=== PATIENT | male | born 1935 | race Caucasian/White ===

== ENCOUNTER 2017-10-26 10:45 | Emergency (ER) | payer OTHER ==
[~2017-10-26] VITALS: Ht 170.2 cm; Wt 56.7 kg
[~2017-10-26 10:45] MED LIST: ADULT LOW DOSE81 MG PO; ARTIFICIAL TEAR15 M1 OPHTHALMIC; ARTIFICIAL TEAR15 M3; ATENOLOL 25 MG25 M1 PG; ATENOLOL 25 MG25 M1 PO; ATENOLOL 25MG T25 MG PO; AZITHROMYCIN 2250 MG PO; COL-RITE100 MG PO; CRESTOR40 MG PO; DUONEB 2.5-0.5 M3 ML INH; EUCERIN CREME57 GM TOP; FISHOIL PO; FLUOCINONI0.05 %/30; FLUOCINONI0.05 %/30 TOP; HEART PILL; HIGH CHOLESTEROL; LEVAQUIN 500 M500 M7 PO; MEDROL DOSPAK21 TA1 PO; MIRALAX255 GM PO; MULTIVITAMINS; MULTIVITAMINS PO; NITRO-DUR 10 C0.2 MG TRANSDERM; NITRO-DUR1 EAC1 TOP; NITROSTAT0.4 MG SUBLING; PREDNISONE 10 M10 M1 PO; PREDNISONE 20 M20 M1 PO; SIMVASTATIN40 MG PO; SODIUM FLUORIDE; TESSALON PERLE100 MG PO; UNICOMPLEX M TA1 TA1 PO; ZITHROMAX TRI-500 MG PO
[2017-10-26] MEDS ORDERED: HYDROCODONE-AP1 EAC6 PO (12:28)
[2017-10-26 13:15] VITALS: BP 130/60
== END 2017-10-26 13:16 | disposition home or self-care (01) ==
LOC: M.ERS 10:45
DX: J32.9 Chronic sinusitis, unspecified (principal); M54.2 Cervicalgia; M25.551 Pain in right hip; I25.10 Atherosclerotic heart disease of native coronary artery without angina pectoris; E78.00 Pure hypercholesterolemia, unspecified; F17.210 Nicotine dependence, cigarettes, uncomplicated; Z86.73 Personal history of transient ischemic attack (TIA), and cerebral infarction without residual deficits; Z88.0 Allergy status to penicillin

== ENCOUNTER → 2018-04-16 | Outpatient (CLI) | payer OTHER ==
[~2018-04-16] MED LIST changes: +HYDROCODONE-AP1 EAC6 PO
== END ==
LOC: M.RAD 08:52
DX: R13.10 Dysphagia, unspecified (principal); M43.22 Fusion of spine, cervical region

== ENCOUNTER 2018-11-30 13:20 | Emergency (ER) | payer OTHER ==
[~2018-11-30] VITALS: Ht 172.7 cm; Wt 50.4 kg
[2018-11-30] MEDS ORDERED: ANORO ELLIPTA1 EACH INH (13:38)
[2018-11-30] MEDS ORDERED: NORCO 5-325 TA1 EAC1 PO (14:27)
[2018-11-30 14:47] VITALS: BP 133/68
== END 2018-11-30 14:47 | disposition home or self-care (01) ==
LOC: M.ERS 13:20
DX: M79.18 Myalgia, other site (principal); E78.00 Pure hypercholesterolemia, unspecified; I25.10 Atherosclerotic heart disease of native coronary artery without angina pectoris; Z98.62 Peripheral vascular angioplasty status; F17.210 Nicotine dependence, cigarettes, uncomplicated; Z88.0 Allergy status to penicillin

== ENCOUNTER → 2018-12-08 | Outpatient (CLI) | payer OTHER ==
[~2018-12-08] MED LIST changes: +ANORO ELLIPTA1 EACH INH; +NORCO 5-325 TA1 EAC1 PO
== END ==
LOC: M.RAD 10:53
DX: J43.9 Emphysema, unspecified (principal); J84.10 Pulmonary fibrosis, unspecified

== ENCOUNTER 2019-09-08 18:24 | Emergency (ER) | payer OTHER ==
[~2019-09-08] VITALS: Ht 172.7 cm; Wt 51.3 kg
[2019-09-08] MEDS ORDERED: ZANAFLEX4 MG PO (19:46)
[2019-09-08 19:56] VITALS: BP 148/60
== END 2019-09-08 19:56 | disposition home or self-care (01) ==
LOC: M.ERS 18:24
DX: S16.1XXA Strain of muscle, fascia and tendon at neck level, initial encounter (principal); S09.8XXA Other specified injuries of head, initial encounter; G93.9 Disorder of brain, unspecified; E78.00 Pure hypercholesterolemia, unspecified; I25.10 Atherosclerotic heart disease of native coronary artery without angina pectoris; F17.210 Nicotine dependence, cigarettes, uncomplicated; Z86.73 Personal history of transient ischemic attack (TIA), and cerebral infarction without residual deficits; Z98.890 Other specified postprocedural states; Z88.0 Allergy status to penicillin; Y04.8XXA Assault by other bodily force, initial encounter; Y92.89 Other specified places as the place of occurrence of the external cause; Y93.89 Activity, other specified; Y99.8 Other external cause status

== ENCOUNTER 2019-10-19 14:42 | Emergency (ER) | payer OTHER ==
[~2019-10-19] VITALS: Ht 172.7 cm; Wt 47.6 kg
[~2019-10-19 14:42] MED LIST changes: +ZANAFLEX4 MG PO
[2019-10-19 15:35] LABS: INFLUENZA A ANTIGEN Negative (Negative); INFLUENZA B ANTIGEN Negative (Negative)
[2019-10-19 15:57] LABS: HEMATOCRIT 37.2 % (42.0-52.0); HEMOGLOBIN 12.6 gm/dL (14.0-18.0); MCH 32.9 pg (26.0-34.0); MCHC 33.9 g/dL (28.0-37.0); MCV 96.9 fL (80.0-100.0); MPV 7.4 fl. (7.2-11.1); RBC 3.84 mil/uL (4.50-6.00); RDW-CV 13.8 % (10.5-14.5); WBC 7.5 thou/uL (4.0-11.0)
[2019-10-19 16:15] LABS: CALCIUM 8.9 mg/dL (8.5-10.1); POTASSIUM 4.1 mmol/L (3.5-5.1)
[2019-10-19 16:27] LABS: ALBUMIN 2.8 g/dL (3.4-5.0); TOTAL BILIRUBIN 0.3 mg/dL (<0.1-1.0); TOTAL PROTEIN 6.7 g/dL (6.4-8.2)
[2019-10-19] MEDS ORDERED: ALBUTEROL2.5 MG/31 INH (17:46)
[2019-10-19] MEDS ORDERED: VENTOLIN HFA 1818 GM INH (17:46)
[2019-10-19] MEDS ORDERED: ZPAK PO (17:46)
[2019-10-19] MEDS ORDERED: PREDNISONE50 MG PO (17:46)
[2019-10-19 17:58] VITALS: BP 150/68
--- NOTE | 2019-10-20 11:01 | EKG ---
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: : 1935 Requested By: Lan Vasquez Order Number: [id number] MD: Cleveland Shepherd Measurements Intervals [place] Rate: 62 P: 56 MO: 57 QRS: 75 QRSD: 81 T: 77 QT: 417 QTc: 424 Interpretive Statements Sinus rhythm Short MO interval Consider left ventricular hypertrophy Baseline wander in lead(s) II,III,aVR,aVL,aVF,V1,V2,V3,V4,V5,V6 Compared to ECG 06/07/2017 14:11:46 Short MO interval now present Electronically Signed On 10-20-2019 11:00:56 LIFE SCIENTIST by Cleveland Shepherd [email or web address] <ELECTRONICALLY SIGNED> By: Cleveland Shepherd MD, FACC 10/20/19 1100 1559 1559 Cleveland Shepherd MD, [facility] /EPI
== END 2019-10-19 17:59 | disposition home or self-care (01) ==
LOC: M.ERS 14:42
PROVIDERS: Emergency Medicine Emergency Medical Services; Nurse Practitioner Family
DX: J40 Bronchitis, not specified as acute or chronic (principal); E78.00 Pure hypercholesterolemia, unspecified; F17.210 Nicotine dependence, cigarettes, uncomplicated; Z88.0 Allergy status to penicillin; Z86.73 Personal history of transient ischemic attack (TIA), and cerebral infarction without residual deficits

== ENCOUNTER 2020-01-05 10:32 | Inpatient (IN) | payer OTHER ==
[~2020-01-05] VITALS: Ht 172.7 cm; Wt 44.9 kg
[~2020-01-05 10:32] MED LIST changes: +ALBUTEROL2.5 MG/31 INH; +PREDNISONE50 MG PO; +VENTOLIN HFA 1818 GM INH; +ZPAK PO
[2020-01-05 10:34] VITALS: BP 170/81
[2020-01-05] MEDS ORDERED: D3-200050 MCG PO (10:39)
[2020-01-05] MEDS ORDERED: FLONASE 0.05%50 MCG NARES (10:39)
[2020-01-05] MEDS ORDERED: FLOMAX0.4 MG PO (10:40)
[2020-01-05] MEDS ORDERED: MIRALAX119 GM PO (10:40)
[2020-01-05] MEDS ORDERED: MEMANTINE HCL ER7 MG PO (10:40)
[2020-01-05 11:32] LABS: ABSOLUTE MONOCYTES 0.7 thou/uL (0.0-1.2); ABSOLUTE NEUTROPHILS 6.2 thou/uL (1.6-8.1); BASOPHILS 0.3 %; EOSINOPHILS 0.4 %; HEMATOCRIT 39.9 % (42.0-52.0); HEMOGLOBIN 13.4 gm/dL (14.0-18.0); LYMPHOCYTES 12.7 %; MCH 33.3 pg (26.0-34.0); MCHC 33.7 g/dL (28.0-37.0); MCV 98.7 fL (80.0-100.0); MPV 7.8 fl. (7.2-11.1); NUCLEATED RBCS 0 /100WBC; PLATELET COUNT* 167 thou/uL (150-400); POLYS 77.6 %; RBC 4.04 mil/uL (4.50-6.00); RDW-CV 14.4 % (10.5-14.5)
[2020-01-05 11:36] LABS: APTT 25.4 Seconds (25.0-31.3); CALCIUM 8.7 mg/dL (8.5-10.1); CREATININE 0.9 mg/dL (0.6-1.3); INR 1.1; POTASSIUM 4.1 mmol/L (3.5-5.1); PROTIME 10.9 Seconds (9.20-11.50)
[2020-01-05 11:39] LABS: INFLUENZA A ANTIGEN Negative (Negative); INFLUENZA B ANTIGEN Negative (Negative)
[2020-01-05 11:47] LABS: ALBUMIN 3.3 g/dL (3.4-5.0); TOTAL BILIRUBIN 0.5 mg/dL (<0.1-1.0); TOTAL PROTEIN 6.5 g/dL (6.4-8.2)
[2020-01-05 16:08] VITALS: BP 155/73
[2020-01-05 16:09] VITALS: BP 157/71
[2020-01-05] MEDS ORDERED: COZAAR 25 MG TA25 M1 PO (18:17)
[2020-01-05 19:30] VITALS: BP 140/65
[2020-01-06 00:16] VITALS: BP 134/57
[2020-01-06 05:11] VITALS: BP 140/68
[2020-01-06 07:01] LABS: HEMATOCRIT 38.7 % (42.0-52.0); HEMOGLOBIN 13.2 gm/dL (14.0-18.0); MCH 32.9 pg (26.0-34.0); MCV 96.8 fL (80.0-100.0); MPV 7.9 fl. (7.2-11.1); NUCLEATED RBCS 0 /100WBC; PLATELET COUNT* 217 thou/uL (150-400); RDW-CV 14.2 % (10.5-14.5); WBC 8.5 thou/uL (4.0-11.0)
[2020-01-06 07:45] LABS: ABSOLUTE LYMPHOCYTES 0.5 thou/uL (0.8-5.3); ABSOLUTE MONOCYTES 0.4 thou/uL (0.0-1.2); ABSOLUTE NEUTROPHILS 7.6 thou/uL (1.6-8.1)
[2020-01-06 07:50] LABS: PLATELET ESTIMATE ADEQUATE
[2020-01-06 09:40] VITALS: BP 147/63
[2020-01-06 10:46] LABS: CALCIUM 8.6 mg/dL (8.5-10.1); CREATININE 1.3 mg/dL (0.6-1.3); POTASSIUM 4.3 mmol/L (3.5-5.1)
[2020-01-06 12:00] VITALS: BP 141/57
[2020-01-06 13:49] VITALS: BP 141/57
[2020-01-06] MEDS ORDERED: PREDNISONE 10 M10 MG PO (14:26)
[2020-01-06] MEDS ORDERED: DOXYCYCLINE 10100 M2 PO (14:35)
[2020-01-06] MEDS ORDERED: PROTONIX40 M2 PO (14:36)
--- NOTE | 2020-01-08 12:25 | EKG ---
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 : 1935 Requested By: Herson Dobbs Order Number: [id number] MD: Will Baca Measurements Intervals [place] Rate: 68 P: 82 CO: 198 QRS: 82 QRSD: 84 T: 85 QT: 434 QTc: 462 Interpretive Statements Sinus rhythm Anteroseptal infarct, age indeterminate Baseline wander in lead(s) V1 Compared to ECG 10/19/2019 15:59:02 Myocardial infarct finding now present Short CO interval no longer present Electronically Signed On 01-05-2020 16:14:48 CDT by Will Baca [email or web address] <ELECTRONICALLY SIGNED> By: Will Baca MD, FACC 01/05/20 1614 1123 1123 Will Baca MD, [facility] /EPI
== END 2020-01-06 16:20 | disposition home or self-care (01) | DRG 177 ==
LOC: M.ERS 10:32 → M.ORTHSURG 14:36 → M.TBA-ER 14:36 → M.ORTHSURG 15:56
PROVIDERS: Family Medicine; ADMIT Internal Medicine
DX: J15.6 Pneumonia due to other Gram-negative bacteria (principal); E43 Unspecified severe protein-calorie malnutrition; J96.01 Acute respiratory failure with hypoxia; J44.0 Chronic obstructive pulmonary disease with (acute) lower respiratory infection; J44.1 Chronic obstructive pulmonary disease with (acute) exacerbation; Z68.1 Body mass index [BMI] 19.9 or less, adult; J20.9 Acute bronchitis, unspecified; I25.10 Atherosclerotic heart disease of native coronary artery without angina pectoris; F17.210 Nicotine dependence, cigarettes, uncomplicated; E78.00 Pure hypercholesterolemia, unspecified; Z20.828 Contact with and (suspected) exposure to other viral communicable diseases; Z86.73 Personal history of transient ischemic attack (TIA), and cerebral infarction without residual deficits; Z95.5 Presence of coronary angioplasty implant and graft; Z79.82 Long term (current) use of aspirin; Z79.899 Other long term (current) drug therapy; Z88.0 Allergy status to penicillin

== ENCOUNTER 2020-08-11 10:04 | Emergency (ER) | payer OTHER ==
[~2020-08-11] VITALS: Ht 172.7 cm; Wt 56.7 kg
[~2020-08-11 10:04] MED LIST changes: +COZAAR 25 MG TA25 M1 PO; +D3-200050 MCG PO; +DOXYCYCLINE 10100 M2 PO; +FLOMAX0.4 MG PO; +FLONASE 0.05%50 MCG NARES; +MEMANTINE HCL ER7 MG PO; +MIRALAX119 GM PO; +PREDNISONE 10 M10 MG PO; +PROTONIX40 M2 PO
[2020-08-11] MEDS ORDERED: NORCO 5-325 TA1 EAC2 PO (12:15)
[2020-08-11] MEDS ORDERED: FLEXERIL PO (12:15)
[2020-08-11 12:40] VITALS: BP 140/70
== END 2020-08-11 12:40 | disposition home or self-care (01) ==
LOC: M.ERS 10:04
DX: M25.551 Pain in right hip (principal); R07.81 Pleurodynia; I25.10 Atherosclerotic heart disease of native coronary artery without angina pectoris; Z86.73 Personal history of transient ischemic attack (TIA), and cerebral infarction without residual deficits; Z79.899 Other long term (current) drug therapy; Z88.0 Allergy status to penicillin; W01.0XXA Fall on same level from slipping, tripping and stumbling without subsequent striking against object, initial encounter; Y93.89 Activity, other specified; Y92.89 Other specified places as the place of occurrence of the external cause; Y99.8 Other external cause status

== ENCOUNTER 2020-08-16 11:49 | Emergency (ER) | payer OTHER ==
[~2020-08-16] VITALS: Ht 172.7 cm; Wt 52.2 kg
[~2020-08-16 11:49] MED LIST changes: +FLEXERIL PO; +NORCO 5-325 TA1 EAC2 PO
[2020-08-16 12:11] LABS: ABSOLUTE EOSINOPHILS 0.3 thou/uL (0.0-0.7); ABSOLUTE LYMPHOCYTES 0.5 thou/uL (0.8-5.3); ABSOLUTE MONOCYTES 0.4 thou/uL (0.0-1.2); ABSOLUTE NEUTROPHILS 2.9 thou/uL (1.6-8.1); BASOPHILS 0.4 %; EOSINOPHILS 7.3 %; HEMATOCRIT 37.7 % (42.0-52.0); HEMOGLOBIN 12.4 gm/dL (14.0-18.0); LYMPHOCYTES 11.8 %; MCH 32.5 pg (26.0-34.0); MCV 98.5 fL (80.0-100.0); MONOCYTES 10.3 %; MPV 7.9 fl. (7.2-11.1); NUCLEATED RBCS 0 /100WBC; PLATELET COUNT* 152 thou/uL (150-400); POLYS 70.2 %; RBC 3.83 mil/uL (4.50-6.00); RDW-CV 14.4 % (10.5-14.5); WBC 4.1 thou/uL (4.0-11.0)
[2020-08-16 12:25] LABS: CALCIUM 8.8 mg/dL (8.5-10.1); CREATININE 1.1 mg/dL (0.6-1.3); POTASSIUM 3.8 mmol/L (3.5-5.1)
[2020-08-16 12:26] LABS: APTT 23.5 Seconds (25.0-31.3); PROTIME 10.8 Seconds (9.20-11.50)
[2020-08-16 12:39] LABS: ALBUMIN 3.4 g/dL (3.4-5.0); CK-MB MASS 5.8 ng/mL (<0.5-3.6); MAGNESIUM 1.7 mg/dL (1.8-2.4); TOTAL BILIRUBIN 0.4 mg/dL (<0.1-1.0); TOTAL PROTEIN 6.6 g/dL (6.4-8.2)
[2020-08-16 15:45] VITALS: BP 120/60
--- NOTE | 2020-08-16 16:49 | EKG ---
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: [facility] : 1935 Requested By: Herson Dobbs Order Number: [id number] MD: Cleveland Shepherd Measurements Intervals [place] Rate: 71 P: -83 OR: 196 QRS: 68 QRSD: 84 T: 93 QT: 373 QTc: 406 Interpretive Statements Sinus or ectopic atrial rhythm Atrial premature complex Nonspecific T abnormalities, lateral leads Compared to ECG 01/05/2020 11:23:58 Ectopic atrial rhythm now present Atrial premature complex(es) now present T-wave abnormality now present Myocardial infarct finding no longer present Electronically Signed On 08-16-2020 16:49:33 TILE MACHINE OPERATOR by Cleveland Shepherd [email or web address] <ELECTRONICALLY SIGNED> By: Cleveland Shepherd MD, FACC 08/16/20 1649 1156 1156 Cleveland Shepherd MD, FACC /EPI
== END 2020-08-16 15:45 | disposition home or self-care (01) ==
LOC: M.ERS 11:49
PROVIDERS: Family Medicine
DX: R07.89 Other chest pain (principal); I25.10 Atherosclerotic heart disease of native coronary artery without angina pectoris; F17.210 Nicotine dependence, cigarettes, uncomplicated; Z88.0 Allergy status to penicillin; Z79.899 Other long term (current) drug therapy; Z86.73 Personal history of transient ischemic attack (TIA), and cerebral infarction without residual deficits; Z95.5 Presence of coronary angioplasty implant and graft; Z98.890 Other specified postprocedural states

== ENCOUNTER 2020-12-17 11:39 | Emergency (ER) | payer OTHER ==
[~2020-12-17] VITALS: Ht 172.7 cm; Wt 63.5 kg
[2020-12-17 12:01] VITALS: BP 158/64
[2020-12-17] MEDS ORDERED: ANTIBIOTIC28.4 GM TOP (12:33)
== END 2020-12-17 12:44 | disposition home or self-care (01) ==
LOC: M.ERS 11:39
DX: S51.811A Laceration without foreign body of right forearm, initial encounter (principal); S61.512A Laceration without foreign body of left wrist, initial encounter; T81.30XA Disruption of wound, unspecified, initial encounter; F03.90 Unspecified dementia, unspecified severity, without behavioral disturbance, psychotic disturbance, mood disturbance, and anxiety; I25.10 Atherosclerotic heart disease of native coronary artery without angina pectoris; E78.00 Pure hypercholesterolemia, unspecified; F17.210 Nicotine dependence, cigarettes, uncomplicated; Z86.73 Personal history of transient ischemic attack (TIA), and cerebral infarction without residual deficits; Z98.890 Other specified postprocedural states; Z79.899 Other long term (current) drug therapy; Z88.0 Allergy status to penicillin; W01.198A Fall on same level from slipping, tripping and stumbling with subsequent striking against other object, initial encounter; Y93.89 Activity, other specified; Y92.098 Other place in other non-institutional residence as the place of occurrence of the external cause; Y99.8 Other external cause status

== ENCOUNTER → 2021-06-23 | Emergency (ER) | payer OTHER ==
[~2021-06-23] VITALS: Ht 172.7 cm; Wt 59.0 kg
[~2021-06-23] MED LIST changes: +ANTIBIOTIC28.4 GM TOP; +ASA81BEC PO
[2021-06-23 20:12] VITALS: BP 147/62
== END ==
LOC: M.ERS 18:03
DX: S00.83XA Contusion of other part of head, initial encounter (principal); M54.2 Cervicalgia; M25.511 Pain in right shoulder; F17.210 Nicotine dependence, cigarettes, uncomplicated; Z79.82 Long term (current) use of aspirin; Z79.899 Other long term (current) drug therapy; Z88.0 Allergy status to penicillin; W19.XXXA Unspecified fall, initial encounter; Y93.89 Activity, other specified; Y92.89 Other specified places as the place of occurrence of the external cause; Y99.8 Other external cause status